=== PATIENT | female | born 1930 | race Caucasian/White ===

== ENCOUNTER 2016-12-23 13:05 | Inpatient (IN) | payer OTHER ==
[2016-12-23 13:12] VITALS: BMI 30.5
--- NOTE | 2016-12-23 13:47 | PDOC ---
History of Present Illness <Linwood Henry - Last Filed: 12/23/16 15:47> - General History Source: Family Exam Limitations: Dementia - History of Present Illness Initial Comments: 12/23/16 14:00 The patient is an 84 year old female, with significant past medical history of advanced dementia, frequent UTIs, HTN, type II diabetes, who presents today complaining of fever, and cough. The patients daughter reports that the cough and fever started last night around 10pm. The patient had 1 episode of vomiting this morning. The patients daughter states that the patient has an abscess that has been oozing dark, foul-smelling pus on the middle of her chest. The patient's daughter also states that the patient urine has a foul odor. Denies hematochezia, Denies chills, abdominal pain. Denies chest pain, SOB. Allergies: none reported Social Hx: Lives at home and has a home health aid. Daughters visit regularly. PCP: Marleny Bermudez NP. ([facility]) <Celestina Willson - Last Filed: 12/23/16 16:43> - General Chief Complaint: Cold Symptoms Stated Complaint: FEVER, COUGH Past History - Past Medical History Cancer: Yes (cervix) Dementia: Yes Diabetes: Yes Disorders: Yes (UTI's) HTN: Yes - Surgical History Cholecystectomy: Yes - Psycho/Social/Smoking Cessation Hx Anxiety: No Suicidal Ideation: No Smoking Status: No Smoking History: Never smoked Number of Cigarettes Smoked Daily: 0 Information on smoking cessation initiated: No Hx Alcohol Use: No Drug/Substance Use Hx: No <Linwood Henry - Last Filed: 12/23/16 15:47> <Celestina Willson - Last Filed: 12/23/16 16:43> - Past Medical History Allergies/Adverse Reactions: Allergies Allergy/AdvReac Type Severity Reaction Status Date / Time No Known Allergies Allergy Verified 12/23/16 13:11 Home Medications: Ambulatory Orders Clonazepam [Klonopin] 1 mg PO BID #14 tablet 04/06/14 Metformin HCl [Glucophage -] 500 mg PO DAILY #14 tablet 04/06/14 Quetiapine Fumarate [Seroquel -] 100 mg PO TID #14 tablet 04/06/14 Sennosides [Senna -] 2 tab PO DAILY #14 tablet 04/06/14 Bisacodyl [Dulcolax] 5 mg PO TID 12/23/16 Nifedipine 30 mg PO DAILY 12/23/16 Review of Systems - Review of Systems Able to Perform ROS?: Yes Comments:: 12/23/16 14:00 CONSTITUTIONAL: Present: fever, Absent: no chills, no fatigue EYES: Absent: visual changes ENT: Absent: ear pain, no sore throat CARDIOVASCULAR: Absent: chest pain, no palpitations RESPIRATORY: Present: cough Absent: no SOB GI: Present: vomiting. Absent: abdominal pain, no nausea, no constipation, no diarrhea GENITOURINARY: Absent: dysuria, no frequency, no hematuria MUSCULOSKELETAL: Absent: back pain, no arthralgia, no myalgia SKIN: Present: rash on chest <Celestina Willson - Last Filed: 12/23/16 16:43> *Physical Exam - Vital Signs Last Vital Signs Temp Pulse Resp BP Pulse Ox 100.9 F H 95 H 18 144/76 97 12/23/16 13:07 12/23/16 13:07 12/23/16 13:07 12/23/16 13:07 12/23/16 13:07 <Linwood Henry - Last Filed: 12/23/16 15:47> - Vital Signs Last Vital Signs Temp Pulse Resp BP Pulse Ox 100.9 F H 95 H 18 144/76 97 12/23/16 13:07 12/23/16 13:07 12/23/16 13:07 12/23/16 13:07 12/23/16 13:07 - Physical Exam Comments: 12/23/16 14:01 GENERAL: Well-appearing, well-nourished. Advanced dementia, unable to communicate. Does not follow commands. HEENT: Normocephalic, atraumatic. PERRL, EOM intact. CARDIOVASCULAR: Normal S1, S2. Regular rate and rhythm. PULMONARY: Clear to auscultation bilaterally. ABDOMEN: Obsese. Soft, non-distended, non-tender. EXTREMITIES: Normal ROM in all four extremities. No gross deformities. SKIN: Superficial rash. No mass, no fluctuance. Warm, dry. NEUROLOGICAL: No focal neurological deficits. <Celestina Willson - Last Filed: 12/23/16 16:43> ED Treatment Course - LABORATORY CBC & Chemistry Diagram: 12/23/16 14:00 12/23/16 14:00 <Linwood Henry - Last Filed: 12/23/16 15:47> - LABORATORY CBC & Chemistry Diagram: 12/23/16 14:00 12/23/16 14:00 - RADIOLOGY Radiograph Interpretation: 12/23/16 15:29 EXAM#: TYPE/EXAM: RESULT: [id number] RAD/CHEST X-RAY PORTABLE* AP portable chest : Pneumonia Since the prior study of 04/04/2014, again noted is the prominent mediastinum with sclerotic knob. There are prominent central markings but no sign of infiltrate or failure. There is a scoliosis with degenerative changes. There is artifact or evidence of prior surgery by the right apex. Correlation recommended. Reported By: Jamal Almeida MD 12/23/16 1524 <Celestina Willson - Last Filed: 12/23/16 16:43> *DC/Admit/Observation/Transfer - Discharge Dispostion Admit: Yes <Linwood Henry - Last Filed: 12/23/16 15:47> - Attestations Scribe Attestion: 12/23/16 14:01 Documentation prepared by ELDER Kurtz, acting as back office medical assistant for Linwood Henry MD. <Celestina Willson - Last Filed: 12/23/16 16:43> Diagnosis at time of Disposition: UTI (urinary tract infection), Pneumonia - Discharge Dispostion Condition at time of disposition: Guarded - Referrals
[2016-12-23] MEDS ORDERED: SODIUM CHLORIDE 1,000 ML IV SCH ×2 (14:00→17:15)
[2016-12-23 14:22] LABS: BASOPHIL 0.2 % (0-2.0); EOSINOPHIL 0.2 % (0-4.5); MCH 29.4 pg (25.7-33.7); MCHC 33.1 g/dl (32.0-36.0); MEAN CELL VOLUME 88.6 fl (80-96); NEUTROPHILS 75.7 % (42.8-82.8); PLATELET COUNT 215 K/MM3 (134-434); RDW 14.5 % (11.6-15.6); WHITE BLOOD COUNT 6.8 K/mm3 (4.0-10.0)
[2016-12-23 14:44] LABS: ALBUMIN 3.7 g/dl (3.4-5.0); BILIRUBIN,TOTAL 0.5 mg/dL (0.2-1.0); CALCIUM 9.3 mg/dL (8.5-10.1); CREATININE 0.9 mg/dL (0.55-1.02)
[2016-12-23 15:01] LABS: URINE APPEARANCE CLOUDY; URINE BILIRUBIN NEGATIVE (NEGATIVE); URINE BLOOD 2+ (NEGATIVE); URINE COLOR DKYELLOW; URINE GLUCOSE (UA) 1+ (NEGATIVE); URINE KETONE TRACE (NEGATIVE); URINE LEUK ESTERASE TRACE (NEGATIVE); URINE NITRITE POSITIVE (NEGATIVE); URINE PROTEIN 2+ (NEGATIVE); URINE UROBILINOGEN 2.0 E.U/dl E.U./dl (0.2-1.0)
[2016-12-23] MEDS ORDERED: MEROPENEM 1,000 MG in DEXTROSE 5%-WATER - 100 ML IVPB ONE (15:04)
[2016-12-23 15:09] LABS: URINE BACTERIA RARE /hpf (NONE SEEN); URINE MUCUS RARE; URINE RBC 64 /hpf (0-3); URINE WBC 551 /hpf (3-5); YEAST MANY
[2016-12-23] MEDS ORDERED: WATER IVPB ONE (15:14)
[2016-12-23] MEDS ORDERED: DEXTROSE 5% IVPB ONE (15:14)
[2016-12-23] MEDS ORDERED: MEROPENEM IVPB ONE (15:14)
--- NOTE | 2016-12-23 17:09 | HP ---
CHIEF COMPLAINT: Cough and fever. PCP: HISTORY OF PRESENT ILLNESS: The patient is an 84 year old female with a significant PMH of dementia, HTN, type II diabetes, history of pyelonephritis who presents today complaining of fever, and cough. The patients daughter states that the cough and fever started last night around 10pm. She is coughing up yellowish sputum. The patient had 1 episode of vomiting this morning, non bloody, non bilious. She states that her mother didn't want to ambulate today and had no appetite. She also states that the patient has an abscess that she noticed week ago. It ruptured dark, brownish, foul-smelling pus in the middle of her chest. The pt has had multiple sebaceous abscesses in the past.The patient's daughter also states that the patient urine has a foul odor. The pt lives alone but has visiting nurse everyday and her daughters also visit her. The history was taken from the pt's daughters. ER course was notable for: (1)Lactic acid (2)BNP, EKG (3)CXR, UA PAST MEDICAL HISTORY: HTN, Dementia, DM type 2, pyelonephritis PAST SURGICAL HISTORY: Cholecystectomy, hysterectomy due to cervical cancer Social History: Smoking:No Alcohol:No Drugs: No Family History: N/A Allergies No Known Allergies Allergy (Verified 12/23/16 13:11) HOME MEDICATIONS: Medication Instructions Recorded Clonazepam [Klonopin] 1 mg PO BID #14 tablet 04/06/14 Metformin HCl [Glucophage -] 500 mg PO DAILY #14 tablet 04/06/14 Quetiapine Fumarate [Seroquel -] 100 mg PO TID #14 tablet 04/06/14 Sennosides [Senna -] 2 tab PO DAILY #14 tablet 04/06/14 Bisacodyl [Dulcolax] 5 mg PO TID 12/23/16 Nifedipine 30 mg PO DAILY 12/23/16 REVIEW OF SYSTEMS: Limited due to pt's dementia CONSTITUTIONAL: fever, chills, generalized weakness, loss of appetite Absent: diaphoresis, malaise, weight change HEENT: Absent: nasal congestion, throat pain, throat swelling, difficulty swallowing, ear pain, eye pain, CARDIOVASCULAR: Absent: chest pain, syncope, palpitations, RESPIRATORY: cough Absent: hemoptysis GASTROINTESTINAL: vomiting Absent: abdominal pain, abdominal distension, nausea, diarrhea, constipation, melena, hematochezia GENITOURINARY: Absent: frequency, urgency, hesitancy, hematuria, flank pain, genital pain MUSCULOSKELETAL: Absent: myalgia, arthralgia, joint swelling, back pain, neck pain SKIN: abscess in middle of the chest, not draining, rash Absent: itching, pallor ENDOCRINE: Absent: unexplained weight gain, unexplained weight loss, NEUROLOGIC: Absent: headache, unsteady gait, seizure, bladder or bowel incontinence PHYSICAL EXAMINATION GENERAL: Awake, demented, not following commands, in no acute distress. HEAD: Normal with no signs of trauma. EYES: Pupils equal, round and reactive to light, sclera anicteric, conjunctiva clear. No lid lag. EARS, NOSE, THROAT: Ears normal, nares patent, moist mucous membranes. NECK: Normal range of motion, supple without lymphadenopathy, JVD, or masses. LUNGS: Breath sounds equal, diminished bilaterally, occasional wheezes, and no crackles. No accessory muscle use. HEART: Regular rate and rhythm, normal S1 and S2 without murmur, rub or gallop. ABDOMEN: Obese, soft, nontender, not distended, normoactive bowel sounds, no guarding, no rebound, no masses. No hepatomegaly or splenomegaly. MUSCULOSKELETAL: No bony deformities or tenderness. CVA tenderness not available to assess. UPPER EXTREMITIES: 2+ pulses, warm, well-perfused. No cyanosis. No clubbing. Cap refill <2 seconds. No peripheral edema. LOWER EXTREMITIES: 2+ pulses, warm, well-perfused. No calf tenderness. No peripheral edema. NEUROLOGICAL: Cranial nerves grossly II-XII intact but pt didn't follow commands, gait not observed, not speaking. PSYCHIATRIC: uncooperative. SKIN: Warm, dry, normal turgor,rash and abscess in mid chest. ASSESSMENT/PLAN: The patient is an 84 year old female with a significant PMH of dementia, HTN, type II diabetes, history of pyelonephritis who presents today complaining of fever, and cough. The patients daughter states that the cough and fever started last night around 10pm. She is coughing up yellowish sputum. The patient had 1 episode of vomiting this morning, non bloody, non bilious. She states that her mother didn't want to ambulate today and had no appetite. She also states that the patient has an abscess that she noticed week ago. It ruptured dark, brownish, foul-smelling pus in the middle of her chest. The pt has had multiple sebaceous abscesses in the past.The patient's daughter also states that the patient urine has a foul odor. The pt is admitted to med surg for SIRS/SEPSIS due to possible PNA/ SIRS/SEPSIS due to possibly CAP/abscess/UTI -Meropenem started in ED -will consult ID -will consider surgery consult tomorrow if abscess not improving -history of skin abscesses in the past -Blood culture and urine culture pending -f/u LA repeat -NS at rate 83 ml/hr -f/u Influenza A and B -f/u sputum culture DM type 2: -will hold Metformin -ISS ACHS -BGM ACHS HTN: -continue Nifedipine 30 mg DAily Dementia; continue home meds Seroquel 100 mg TID, Clonazepam 1 mg PO BID DVT PPX: -heparin 5000 u SQ GI PPX; -not indicated Disposition: Med surg Problem List - Problem (1) Pneumonia Code(s): J18.9 - PNEUMONIA, UNSPECIFIED ORGANISM (2) UTI (urinary tract infection) Code(s): N39.0 - URINARY TRACT INFECTION, SITE NOT SPECIFIED (3) Abscess Code(s): L02.91 - CUTANEOUS ABSCESS, UNSPECIFIED Visit type - Emergency Visit Emergency Visit: Yes ED Registration Date: 12/23/16 Care time: The patient presented to the Emergency Department on the above date and was hospitalized for further evaluation of their emergent condition. - New Patient This patient is new to me today: No - Critical Care Critical Care patient: No
--- NOTE | 2016-12-23 17:38 | PN ---
Teaching Attending Note Name of Resident: Donna Serra ATTENDING PHYSICIAN STATEMENT I saw and evaluated the patient. I reviewed the resident's note and discussed the case with the resident. I agree with the resident's findings and plan as documented. SUBJECTIVE: This is an 84-year-old woman with a history of dementia, HTN, type 2 DM who was brought in to the ER today because of a productive cough and fever since last night. Family notes that her urine has been foul-smelling and she has had a draining lesion on her chest. OBJECTIVE: Vital Signs Period Temp Pulse Resp BP Sys/Mason Pulse Ox Last 24 Hr 100.9 F 95-98 18-18 140-144/76-80 95-97 HEART: S1 S2, RRR LUNGS: Clear ABDOMEN: Soft, non-distended, normal BS EXTREMITIES: No edema ASSESSMENT AND PLAN: This is an 84-year-old woman with a history of dementia, HTN, type 2 DM who was presents to the ER with a productive cough and fever since last night. 1. Sepsis secondary to acute bronchitis, possible early pneumonia, possible UTI , possible skin abscess - Merrem given in ER - IV fluid - Repeat lactic acid - Check influenza A/B - Follow up urine, blood cultures - ID consult 2. HTN - Continue Nifedipine 3. Type 2 diabetes mellitus - Hold metformin secondary to high lactic acid - Fingersticks with Novolog sliding scale 4. Dementia - Continue Seroquel, Klonopin
[2016-12-23] MEDS ORDERED: ACETAMINOPHEN 325 MG TABLET (FP) PO ONE (20:03)
[2016-12-23] MEDS: clonazePAM 0.5 MG TABLET PO SCH (22:00)
[2016-12-23] MEDS: HEPARIN NA (PORCINE) 5,000 UNITS/ML 1ML VIAL SQ SCH (22:40)
[2016-12-23] MEDS: BISACODYL 5 MG TABLET.DR (FP) PO SCH (22:40)
[2016-12-23] MEDS: QUEtiapine FUMARATE 100 MG TABLET (FP) PO SCH (22:41)
[2016-12-23] MEDS: INSULIN SLIDING SCALE (NOVOLOG) 1 VIAL SQ SCH (22:46)
--- NOTE | 2016-12-23 23:18 | EKG ---
Test Reason : Blood Pressure : / mmHG Vent. Rate : 099 BPM Atrial Rate : 099 BPM P-R Int : 160 ms QRS Dur : 090 ms QT Int : 336 ms P-R-T Axes : 051 -47 037 degrees QTc Int : 431 ms NORMAL SINUS RHYTHM LEFT ANTERIOR FASCICULAR BLOCK NONSPECIFIC T WAVE ABNORMALITY ABNORMAL ECG WHEN COMPARED WITH ECG OF 04-APR-2014 18:42, NO SIGNIFICANT CHANGE WAS FOUND Confirmed by ROSARIO GABRIEL MD ([id number]) on 12/23/2016 11:18:41 PM Referred By: Confirmed By:ROSARIO GABRIEL MD
[2016-12-24] MEDS: OSELTAMIVIR PHOSPHATE 30 MG CAPSULE PO SCH ×2 (06:33→22:02)
[2016-12-24] MEDS: HEPARIN NA (PORCINE) 5,000 UNITS/ML 1ML VIAL SQ SCH ×3 (06:33→22:02)
[2016-12-24] MEDS: BISACODYL 5 MG TABLET.DR (FP) PO SCH ×3 (06:33→22:01)
[2016-12-24] MEDS: QUEtiapine FUMARATE 100 MG TABLET (FP) PO SCH ×3 (06:33→22:01)
[2016-12-24] MEDS: INSULIN SLIDING SCALE (NOVOLOG) 1 VIAL SQ SCH ×4 (06:36→22:10)
[2016-12-24] MEDS ORDERED: INSULIN (NOVOLOG) ASPART 100 UNITS/ML 10ML VIAL ONE ×2 (07:11→12:42)
[2016-12-24 07:23] LABS: MCH 29.9 pg (25.7-33.7); MCHC 33.3 g/dl (32.0-36.0); MEAN CELL VOLUME 89.9 fl (80-96); MEAN PLT VOLUME 9.3 fl (7.5-11.1); PLATELET COUNT 167 K/MM3 (134-434); RDW 14.8 % (11.6-15.6)
[2016-12-24 08:24] LABS: CREATININE 0.7 mg/dL (0.55-1.02)
[2016-12-24] MEDS ORDERED: PT OWN MED DRAWER 7, Y5N ONE (10:38)
[2016-12-24] MEDS: SENNOSIDES 8.6MG TABLET (FP) PO SCH (10:40)
[2016-12-24] MEDS: NIFEdipine E.R. 30 MG TABLET (FP) PO SCH (10:40)
[2016-12-24] MEDS: clonazePAM 0.5 MG TABLET PO SCH ×2 (10:40→22:01)
[2016-12-24] MEDS ORDERED: SODIUM CHLORIDE 1,000 ML IV SCH (11:24)
[2016-12-24] MEDS ORDERED: PIPERACILLIN/TAZOB 3.375 GM/50 ML PRE-DOCKED IVPB ONE (11:30)
--- NOTE | 2016-12-24 11:43 | CONSULT ---
Consultation: REQUESTING PROVIDER:Ranjan CONSULT REQUEST: CTSP for evaluation and management of possible ABSSSI of the anterior chest wall; pt. has had this in the past. HISTORY OF PRESENT ILLNESS:Hx. obtained from the chart; RN PHYSICAL EXAMINATION Vital Signs Temperature 100.5 F H 12/24/16 09:00 Pulse Rate 82 12/24/16 09:00 Respiratory Rate 20 12/24/16 09:00 Blood Pressure 136/75 12/24/16 09:00 O2 Sat by Pulse Oximetry (%) 94 L 12/24/16 09:00 GENERAL: Awake, not oriented x 3 PSYCH: Cooperative. Good eye contact. Appropriate mood and affect. SKIN: Warm, dry, normal turgor, ~ 2.5 cm. soft tissue mass of the anterior chest wall c/w a noninfected sebaceous cyst; no erythema; no fluctuance; o/w negative. LABS: Laboratory Results - last 24 hr 12/23/16 12/23/16 12/23/16 17:20 20:40 22:44 WBC RBC Hgb Hct MCV MCHC RDW Plt Count MPV Sodium Potassium Chloride Carbon Dioxide Anion Gap BUN Creatinine POC Glucometer 222 Random Glucose Lactic Acid 1.768 1.416 Calcium 12/24/16 12/24/16 12/24/16 06:00 06:00 06:35 WBC 6.0 RBC 3.67 Hgb 11.0 D Hct 33.0 MCV 89.9 MCHC 33.3 RDW 14.8 Plt Count 167 D MPV 9.3 Sodium 140 Potassium 3.6 Chloride 109 H Carbon Dioxide 21 D Anion Gap 10 BUN 18 Creatinine 0.7 D POC Glucometer 117 Random Glucose 124 H D Lactic Acid Calcium 8.0 L Microbiology 12/23/16 20:30 Influenza Types A,B Antigen (BRUNA) - Final Nasopharyngeal Swab - Final A/P: sebaceous cyst; no indication for I and D at this time; advise observation; prn surgical f/u. Rene Liu MD FACS Problem List - Problems (1) Sebaceous cyst Code(s): L72.3 - SEBACEOUS CYST Visit type - Case Type Case Type: ED Admission - Emergency Emergency Visit: Yes ED Registration Date: 12/23/16 Care time: The patient presented to the Emergency Department on the above date and was hospitalized for further evaluation of their emergent condition. - New patient This patient is new to me today: Yes Date on this admission: 12/24/16 - Critical Care Critical Care patient: No
[2016-12-24] MEDS ORDERED: VANCOMYCIN 1 GRAM (PRE-DOCKED) 250 ML IVPB ONE (11:45)
[2016-12-24] MEDS: ALBUTEROL SO4 2.5/IPRATROPIUM 0.5 INH SOL 3 ML VIAL.NEB. NEB PRN ×2 (12:45→21:46)
--- NOTE | 2016-12-24 15:26 | CONSULT ---
Consult Consult Specialty:: infectious diseases Reason for Consultation:: uti,flu - History of Present Illness Chief Complaint: cough History of Present Illness: 84 year old female with a significant PMH of dementia, HTN, type II diabetes, history of pyelonephritis who presents today complaining of fever, and cough. The patients daughter states that the cough and fever started last night around 10pm. She is coughing up yellowish sputum. The patient had 1 episode of vomiting this morning, non bloody, non bilious. She states that her mother didn' t want to ambulate today and had no appetite. She also states that the patient has an abscess that she noticed week ago. It ruptured dark, brownish, foul- smelling pus in the middle of her chest. The pt has had multiple sebaceous abscesses in the past.The patient's daughter also states that the patient urine has a foul odor. The pt lives alone but has visiting nurse everyday and her daughters also visit her. The history was taken from the pt's daughters. This history taken from the chart as patient unable to give history and her daughter just left the building patient is awake and opens eyes and does answer something patient has got multiple abx in the emergency room - History Source History Provided By: Medical Record Limitations to Obtaining History: Clinical Condition - Past Medical History Cardio/Vascular: Yes: HTN Renal/: Yes: Cancer Endocrine: Yes: Diabetes Mellitus - Alcohol/Substance Use Hx Alcohol Use: No - Smoking History Smoking history: Never smoked Aproximately how many cigarettes per day: 0 Home Medications - Allergies Allergies/Adverse Reactions: Allergies Allergy/AdvReac Type Severity Reaction Status Date / Time No Known Allergies Allergy Verified 12/23/16 13:11 - Home Medications Home Medications: Ambulatory Orders Clonazepam [Klonopin] 1 mg PO BID #14 tablet 04/06/14 Metformin HCl [Glucophage -] 500 mg PO DAILY #14 tablet 04/06/14 Quetiapine Fumarate [Seroquel -] 100 mg PO TID #14 tablet 04/06/14 Sennosides [Senna -] 2 tab PO DAILY #14 tablet 04/06/14 Bisacodyl [Dulcolax] 5 mg PO TID 12/23/16 Nifedipine 30 mg PO DAILY 12/23/16 Review of Systems - Review of Systems Constitutional: reports: Fever, Other Eyes: reports: No Symptoms HENT: reports: No Symptoms Neck: reports: No Symptoms Cardiovascular: reports: No Symptoms Respiratory: reports: Cough, SOB Gastrointestinal: reports: Vomiting Musculoskeletal: reports: Muscle Weakness Neurological: reports: No Symptoms Endocrine: reports: No Symptoms Hematology/Lymphatic: reports: No Symptoms Physical Exam Vital Signs: Vital Signs Temperature 98.6 F 12/24/16 14:08 Pulse Rate 88 12/24/16 14:08 Respiratory Rate 16 12/24/16 14:08 Blood Pressure 138/70 12/24/16 14:08 O2 Sat by Pulse Oximetry (%) 94 L 12/24/16 09:00 Constitutional: Yes: Calm, Mild Distress Eyes: Yes: Conjunctiva Clear HENT: Yes: Atraumatic Neck: Yes: Supple, Trachea Midline Cardiovascular: Yes: Regular Rate and Rhythm Respiratory: Yes: Regular, Poor Air Entry, Rhonchi Gastrointestinal: Yes: Normal Bowel Sounds, Soft Musculoskeletal: Yes: WNL Extremities: Yes: WNL Neurological: Yes: Alert, Other (dementia) Psychiatric: Yes: Alert Labs: CBC, BMP 12/24/16 06:00 12/24/16 06:00 Imaging - Results Chest X-ray: Report Reviewed, Image Reviewed Assessment/Plan 1. Sepsis secondary to acute bronchitis, early pneumonia, UTI, 2. HTN 3. Type 2 diabetes mellitus dehydration Influenza plan continue tamiflu gentle hydration will start on zosyn await for identification of organism in urine rest continue current mgmt -
--- NOTE | 2016-12-24 16:09 | PN ---
Teaching Attending Note Name of Resident: Donna Serra ATTENDING PHYSICIAN STATEMENT I saw and evaluated the patient. I reviewed the resident's note and discussed the case with the resident. I agree with the resident's findings and plan as documented. SUBJECTIVE: OBJECTIVE: Vital Signs Temperature 98.6 F 12/24/16 14:08 Pulse Rate 88 12/24/16 14:08 Respiratory Rate 16 12/24/16 14:08 Blood Pressure 138/70 12/24/16 14:08 O2 Sat by Pulse Oximetry (%) 94 L 12/24/16 10:00 GENERAL: The patient is awake, alert, demented, in no acute distress. HEAD: Normal with no signs of trauma. EYES: PERRL, sclera anicteric, conjunctiva clear. No ptosis. ENT: Ears normal, nares patent, oropharynx clear without exudates, moist mucous membranes. NECK: Trachea midline, full range of motion, supple. LUNGS: Breath sounds equal, diminished bilaterally, occasional wheezes, no crackles, no accessory muscle use. HEART: Regular rate and rhythm, S1, S2 without murmur, rub or gallop. ABDOMEN: Obese, soft, nontender, nondistended, normoactive bowel sounds, no guarding, no rebound, no hepatosplenomegaly, no masses. EXTREMITIES: 2+ pulses, warm, well-perfused, no edema. NEUROLOGICAL: Cranial nerves II through XII grossly intact. Normal speech, gait not observed. PSYCH: Normal mood, normal affect. SKIN: Warm, dry, normal turgor, abscess in mid chest and rash. CBCD WBC 6.0 K/mm3 (4.0-10.0) 12/24/16 06:00 RBC 3.67 M/mm3 (3.60-5.2) 12/24/16 06:00 Hgb 11.0 GM/dL (10.7-15.3) D 12/24/16 06:00 Hct 33.0 % (32.4-45.2) 12/24/16 06:00 MCV 89.9 fl (80-96) 12/24/16 06:00 MCHC 33.3 g/dl (32.0-36.0) 12/24/16 06:00 RDW 14.8 % (11.6-15.6) 12/24/16 06:00 Plt Count 167 K/MM3 (134-434) D 12/24/16 06:00 MPV 9.3 fl (7.5-11.1) 12/24/16 06:00 CMP Sodium 140 mmol/L (136-145) 12/24/16 06:00 Potassium 3.6 mmol/L (3.5-5.1) 12/24/16 06:00 Chloride 109 mmol/L (98-107) H 12/24/16 06:00 Carbon Dioxide 21 mmol/L (21-32) D 12/24/16 06:00 Anion Gap 10 (8-16) 12/24/16 06:00 BUN 18 mg/dL (7-18) 12/24/16 06:00 Creatinine 0.7 mg/dL (0.55-1.02) D 12/24/16 06:00 Creat Clearance w eGFR 59.37 (>60) 12/23/16 14:00 Random Glucose 124 mg/dL (74-106) H D 12/24/16 06:00 Calcium 8.0 mg/dL (8.5-10.1) L 12/24/16 06:00 Total Bilirubin 0.5 mg/dL (0.2-1.0) D 12/23/16 14:00 AST 41 U/L (15-37) H D 12/23/16 14:00 ALT 36 U/L (12-78) 12/23/16 14:00 Alkaline Phosphatase 91 U/L (45-117) 12/23/16 14:00 Total Protein 8.0 g/dl (6.4-8.2) 12/23/16 14:00 Albumin 3.7 g/dl (3.4-5.0) 12/23/16 14:00 Current Medications Generic Name Dose Route Start Last Admin Trade Name Freq PRN Reason Stop Dose Admin Acetaminophen 650 mg 12/24/16 11:23 Tylenol - PO Q6H PRN FEVER OR PAIN Albuterol/Ipratropium 1 amp 12/24/16 11:31 12/24/16 12:45 Duoneb - NEB 1 amp Q6H PRN Administration SHORTNESS OF BREATH Bisacodyl 5 mg 12/23/16 22:00 12/24/16 14:05 Dulcolax - PO 5 mg TID EAMON Administration Clonazepam 1 mg 12/23/16 22:00 12/24/16 10:40 Klonopin - PO 1 mg BID EAMON Administration Heparin Sodium (Porcine) 5,000 unit 12/23/16 22:00 12/24/16 14:05 Heparin - SQ 5,000 unit TID EAMON Administration Sodium Chloride 1,000 mls @ 42 mls/hr 12/24/16 11:24 12/24/16 11:25 Normal Saline - IV Not Given ASDIR EAMON Piperacillin Sod/Tazobactam Sod 50 mls @ 100 mls/hr 12/24/16 18:00 Zosyn 3.375gm Ivpb (Pre-Docked) IVPB Q8H-IV EAMON Insulin Aspart 1 vial 12/23/16 22:00 12/24/16 12:22 Novolog Vial Sliding Scale - SQ 2 unit ACHS EAMON Administration Protocol Nifedipine 30 mg 12/24/16 10:00 12/24/16 10:40 Procardia Xl - PO 30 mg DAILY EAMON Administration Oseltamivir Phosphate 30 mg 12/24/16 06:15 12/24/16 06:33 Tamiflu - PO 30 mg BID EAMON Administration Quetiapine Fumarate 100 mg 12/23/16 22:00 12/24/16 14:05 Seroquel - PO Not Given TID EAMON Senna 2 tab 12/24/16 10:00 12/24/16 10:40 Senna - PO 2 tab DAILY EAMON Administration Medication Instructions Recorded Clonazepam [Klonopin] 1 mg PO BID #14 tablet 04/06/14 Metformin HCl [Glucophage -] 500 mg PO DAILY #14 tablet 04/06/14 Quetiapine Fumarate [Seroquel -] 100 mg PO TID #14 tablet 04/06/14 Sennosides [Senna -] 2 tab PO DAILY #14 tablet 04/06/14 Bisacodyl [Dulcolax] 5 mg PO TID 12/23/16 Nifedipine 30 mg PO DAILY 12/23/16 ASSESSMENT AND PLAN: This is an 84-year-old woman with a history of dementia, HTN, type 2 DM who was presents to the ER with a productive cough and fever since last night. # Acute sepsis due having acute bronchitis with possible early pneumonia/ UTI , possible mid sternal abscess ID on the case , patient is on Zosyn, surgical consult appreciated for possible drainage of the mid sternal abscess # HTN Continue Nifedipine # Type 2 diabetes mellitus : Fingersticks with Novolog sliding scale # Dementia Continue Seroquel
--- NOTE | 2016-12-24 16:36 | PN ---
Physical Exam: SUBJECTIVE: Patient seen and examined. She is demented. No ROS. OBJECTIVE: Vital Signs Period Temp Pulse Resp BP Sys/Mason Pulse Ox Last 24 Hr 98.6 F-101.6 F 82-98 16-20 124-149/60-80 94-95 GENERAL: The patient is awake, alert, demented, in no acute distress. HEAD: Normal with no signs of trauma. EYES: PERRL, sclera anicteric, conjunctiva clear. No ptosis. ENT: Ears normal, nares patent, oropharynx clear without exudates, moist mucous membranes. NECK: Trachea midline, full range of motion, supple. LUNGS: Breath sounds equal, diminished bilaterally, occasional wheezes, no crackles, no accessory muscle use. HEART: Regular rate and rhythm, S1, S2 without murmur, rub or gallop. ABDOMEN: Obese, soft, nontender, nondistended, normoactive bowel sounds, no guarding, no rebound, no hepatosplenomegaly, no masses. EXTREMITIES: 2+ pulses, warm, well-perfused, no edema. NEUROLOGICAL: Cranial nerves II through XII grossly intact. Normal speech, gait not observed. PSYCH: Normal mood, normal affect. SKIN: Warm, dry, normal turgor, abscess in mid chest and rash. Laboratory Results - last 24 hr 12/23/16 12/23/16 12/23/16 17:20 20:40 22:44 WBC RBC Hgb Hct MCV MCHC RDW Plt Count MPV Sodium Potassium Chloride Carbon Dioxide Anion Gap BUN Creatinine POC Glucometer 222 Random Glucose Lactic Acid 1.768 1.416 Calcium 12/24/16 12/24/16 12/24/16 06:00 06:00 06:35 WBC 6.0 RBC 3.67 Hgb 11.0 D Hct 33.0 MCV 89.9 MCHC 33.3 RDW 14.8 Plt Count 167 D MPV 9.3 Sodium 140 Potassium 3.6 Chloride 109 H Carbon Dioxide 21 D Anion Gap 10 BUN 18 Creatinine 0.7 D POC Glucometer 117 Random Glucose 124 H D Lactic Acid Calcium 8.0 L 12/24/16 12:21 WBC RBC Hgb Hct MCV MCHC RDW Plt Count MPV Sodium Potassium Chloride Carbon Dioxide Anion Gap BUN Creatinine POC Glucometer 180 Random Glucose Lactic Acid Calcium Active Medications Generic Name Dose Route Start Last Admin Trade Name Freq PRN Reason Stop Dose Admin Acetaminophen 650 mg 12/24/16 11:23 Tylenol - PO Q6H PRN FEVER OR PAIN Albuterol/Ipratropium 1 amp 12/24/16 11:31 12/24/16 12:45 Duoneb - NEB 1 amp Q6H PRN Administration SHORTNESS OF BREATH Bisacodyl 5 mg 12/23/16 22:00 12/24/16 14:05 Dulcolax - PO 5 mg TID EMAON Administration Clonazepam 1 mg 12/23/16 22:00 12/24/16 10:40 Klonopin - PO 1 mg BID EAMON Administration Heparin Sodium (Porcine) 5,000 unit 12/23/16 22:00 12/24/16 14:05 Heparin - SQ 5,000 unit TID EAMON Administration Sodium Chloride 1,000 mls @ 42 mls/hr 12/24/16 11:24 12/24/16 11:25 Normal Saline - IV Not Given ASDIR EAMON Piperacillin Sod/Tazobactam Sod 50 mls @ 100 mls/hr 12/24/16 18:00 Zosyn 3.375gm Ivpb (Pre-Docked) IVPB Q8H-IV EAMON Insulin Aspart 1 vial 12/23/16 22:00 12/24/16 12:22 Novolog Vial Sliding Scale - SQ 2 unit ACHS EAMON Administration Protocol Nifedipine 30 mg 12/24/16 10:00 12/24/16 10:40 Procardia Xl - PO 30 mg DAILY EAMON Administration Oseltamivir Phosphate 30 mg 12/24/16 06:15 12/24/16 06:33 Tamiflu - PO 30 mg BID EAMON Administration Quetiapine Fumarate 100 mg 12/23/16 22:00 12/24/16 14:05 Seroquel - PO Not Given TID EAMON Senna 2 tab 12/24/16 10:00 12/24/16 10:40 Senna - PO 2 tab DAILY EAMON Administration CXR: no acute pathology. ASSESSMENT/PLAN: The patient is an 84 year old female with a significant PMH of dementia, HTN, type II diabetes, history of pyelonephritis who presents today complaining of fever, and cough. The patients daughter states that the cough and fever started last night around 10pm. She is coughing up yellowish sputum. The patient had 1 episode of vomiting this morning, non bloody, non bilious. She states that her mother didn't want to ambulate today and had no appetite. She also states that the patient has an abscess that she noticed week ago. It ruptured dark, brownish, foul-smelling pus in the middle of her chest. The pt has had multiple sebaceous abscesses in the past.The patient's daughter also states that the patient urine has a foul odor. The pt is admitted to med surg for SIRS/SEPSIS due to possible PNA/abscess. SIRS/SEPSIS due to possibly CAP/abscess/UTI -Meropenem started in ED, -will consult ID -started Zosyn and Tamiflu 30 mg -Tylenol for fever -surgery consulted -history of skin abscesses in the past -Blood culture and urine culture pending -f/u LA repeat, normalized -NS at rate 83 ml/hr, decreased to 42ml/hr -positive for Influenza A -f/u sputum culture DM type 2: -will hold Metformin -ISS ACHS -BGM ACHS HTN: -continue Nifedipine 30 mg DAily Dementia; continue home meds Seroquel 100 mg TID, Clonazepam 1 mg PO BID DVT PPX: -heparin 5000 u SQ GI PPX; -not indicated Disposition: Med surg Problem List - Problems (1) Pneumonia Code(s): J18.9 - PNEUMONIA, UNSPECIFIED ORGANISM (2) UTI (urinary tract infection) Code(s): N39.0 - URINARY TRACT INFECTION, SITE NOT SPECIFIED (3) Abscess Code(s): L02.91 - CUTANEOUS ABSCESS, UNSPECIFIED Visit type - Emergency Visit Emergency Visit: Yes ED Registration Date: 12/23/16 Care time: The patient presented to the Emergency Department on the above date and was hospitalized for further evaluation of their emergent condition. - New Patient This patient is new to me today: No - Critical Care Critical Care patient: No - Discharge Referral Referred to [facility] Med P.C.: No
[2016-12-24] MEDS: PIPERACILLIN/TAZOB 3.375 GM 50 ML IVPB SCH (19:00)
[2016-12-25] MEDS: PIPERACILLIN/TAZOB 3.375 GM 50 ML IVPB SCH ×3 (01:28→17:44)
[2016-12-25] MEDS: QUEtiapine FUMARATE 100 MG TABLET (FP) PO SCH ×3 (06:20→21:52)
[2016-12-25] MEDS: HEPARIN NA (PORCINE) 5,000 UNITS/ML 1ML VIAL SQ SCH ×3 (06:21→21:52)
[2016-12-25] MEDS: INSULIN SLIDING SCALE (NOVOLOG) 1 VIAL SQ SCH ×4 (06:22→21:49)
[2016-12-25] MEDS: BISACODYL 5 MG TABLET.DR (FP) PO SCH ×3 (07:38→21:51)
[2016-12-25] MEDS: clonazePAM 0.5 MG TABLET PO SCH ×2 (10:48→21:52)
[2016-12-25] MEDS ORDERED: PT OWN MED DRAWER 7, Y5N ONE ×2 (10:51→18:35)
[2016-12-25] MEDS: NIFEdipine E.R. 30 MG TABLET (FP) PO SCH (10:53)
[2016-12-25] MEDS: ACETAMINOPHEN 325 MG TABLET (FP) PO PRN (10:53)
[2016-12-25] MEDS: OSELTAMIVIR PHOSPHATE 30 MG CAPSULE PO SCH ×2 (10:53→21:52)
[2016-12-25] MEDS: SENNOSIDES 8.6MG TABLET (FP) PO SCH (10:53)
--- NOTE | 2016-12-25 12:45 | PN ---
Physical Exam: SUBJECTIVE: Patient seen and examined. She is demented. No overnight events noted by the nurse. OBJECTIVE: Vital Signs Period Temp Pulse Resp BP Sys/Mason Pulse Ox Last 24 Hr 98 F-99.6 F 77-88 16-20 138-139/70-86 94 GENERAL: The patient is awake, demented, in no acute distress. HEAD: Normal with no signs of trauma. EYES: PERRL, extraocular movements intact, sclera anicteric, conjunctiva clear. No ptosis. ENT: Ears normal, nares patent, oropharynx clear without exudates, moist mucous membranes. NECK: Trachea midline, full range of motion, supple. LUNGS: Breath sounds equal, diminished bilaterally, no wheezes, no crackles, no accessory muscle use. HEART: Regular rate and rhythm, S1, S2 without murmur, rub or gallop. ABDOMEN: Obese, soft, nontender, nondistended, normoactive bowel sounds, no guarding, no rebound, no hepatosplenomegaly, no masses. EXTREMITIES: 2+ pulses, warm, well-perfused, no edema. NEUROLOGICAL: Cranial nerves II through XII grossly intact. Normal speech, gait not observed. PSYCH: Normal mood, normal affect. SKIN: Warm, dry, normal turgor, abscess and rash in mid chest present. Laboratory Results - last 24 hr 12/24/16 12/24/16 12/24/16 12:21 17:38 22:07 POC Glucometer 180 125 157 Lactic Acid 12/25/16 12/25/16 12/25/16 05:47 06:00 11:49 POC Glucometer 120 174 Lactic Acid 0.851 Active Medications Generic Name Dose Route Start Last Admin Trade Name Freq PRN Reason Stop Dose Admin Acetaminophen 650 mg 12/24/16 11:23 12/25/16 10:53 Tylenol - PO 650 mg Q6H PRN Administration FEVER OR PAIN Albuterol/Ipratropium 1 amp 12/24/16 11:31 12/24/16 21:46 Duoneb - NEB 1 amp Q6H PRN Administration SHORTNESS OF BREATH Bisacodyl 5 mg 12/23/16 22:00 12/25/16 07:38 Dulcolax - PO Not Given TID EAMON Clonazepam 1 mg 12/23/16 22:00 12/25/16 10:48 Klonopin - PO Not Given BID EAMON Diltiazem HCl 30 mg 12/25/16 12:45 Cardizem - PO Q6H EAMON Heparin Sodium (Porcine) 5,000 unit 12/23/16 22:00 12/25/16 06:21 Heparin - SQ 5,000 unit TID EAMON Administration Piperacillin Sod/Tazobactam Sod 50 mls @ 100 mls/hr 12/24/16 18:00 12/25/16 10: 53 Zosyn 3.375gm Ivpb (Pre-Docked) IVPB 100 mls/hr Q8H-IV EAMON Administration Insulin Aspart 1 vial 12/23/16 22:00 12/25/16 11:50 Novolog Vial Sliding Scale - SQ 2 units ACHS EAMON Administration Protocol Oseltamivir Phosphate 30 mg 12/24/16 06:15 12/25/16 10:53 Tamiflu - PO 30 mg BID EAMON Administration Quetiapine Fumarate 100 mg 12/23/16 22:00 12/25/16 06:20 Seroquel - PO Not Given TID EAMON Senna 2 tab 12/24/16 10:00 12/25/16 10:53 Senna - PO 2 tab DAILY EAMON Administration CXR: no acute pathology. ASSESSMENT/PLAN: The patient is an 84 year old female with a significant PMH of dementia, HTN, type II diabetes, history of pyelonephritis who presents today complaining of fever, and cough. The patients daughter states that the cough and fever started last night around 10pm. She is coughing up yellowish sputum. The patient had 1 episode of vomiting this morning, non bloody, non bilious. She states that her mother didn't want to ambulate today and had no appetite. She also states that the patient has an abscess that she noticed week ago. It ruptured dark, brownish, foul-smelling pus in the middle of her chest. The pt has had multiple sebaceous abscesses in the past.The patient's daughter also states that the patient urine has a foul odor. The pt is admitted to med surg for SIRS/SEPSIS due to possible PNA/abscess. SIRS/SEPSIS due to possibly CAP/abscess/UTI -Meropenem started in ED, -consulted ID -started Zosyn and Tamiflu 30 mg -Tylenol for fever -history of skin abscesses in the past, surgery not evaluated pt yet -Blood culture and urine culture -f/u LA repeat, normalized -NS at rate 83 ml/hr, decreased to 42ml/hr, stopped today -positive for Influenza A -sputum culture -she spit up her Nifedipine, we ordered Speech and Swallow evaluation, changed diet for puree and ordered Cardizem 30 mg Q6H which can be smashed DM type 2: -hold Metformin -ISS ACHS -BGM ACHS HTN: -continue Cardizem 30 mg Q6H Dementia; continue home meds Seroquel 100 mg TID, Clonazepam 1 mg PO BID DVT PPX: -heparin 5000 u SQ GI PPX; -not indicated Disposition: Med surg Problem List - Problems (1) Pneumonia Code(s): J18.9 - PNEUMONIA, UNSPECIFIED ORGANISM (2) UTI (urinary tract infection) Code(s): N39.0 - URINARY TRACT INFECTION, SITE NOT SPECIFIED (3) Abscess Code(s): L02.91 - CUTANEOUS ABSCESS, UNSPECIFIED Visit type - Emergency Visit Emergency Visit: Yes ED Registration Date: 12/23/16 Care time: The patient presented to the Emergency Department on the above date and was hospitalized for further evaluation of their emergent condition. - New Patient This patient is new to me today: No - Critical Care Critical Care patient: No - Discharge Referral Referred to [facility] Med P.C.: No
--- NOTE | 2016-12-25 13:03 | PN ---
Progress Note, Physician History of Present Illness: patient feeling better still weak sitting in chair daughter in room spoke in detail with the daughter - Current Medication List Current Medications: Active Medications Acetaminophen (Tylenol -) 650 mg PO Q6H PRN PRN Reason: FEVER OR PAIN Last Admin: 12/25/16 10:53 Dose: 650 mg Albuterol/Ipratropium (Duoneb -) 1 amp NEB Q6H PRN PRN Reason: SHORTNESS OF BREATH Last Admin: 12/24/16 21:46 Dose: 1 amp Bisacodyl (Dulcolax -) 5 mg PO TID [facility] Last Admin: 12/25/16 07:38 Dose: Not Given Clonazepam (Klonopin -) 1 mg PO BID [facility] Last Admin: 12/25/16 10:48 Dose: Not Given Diltiazem HCl (Cardizem -) 30 mg PO Q6HPO [facility] Heparin Sodium (Porcine) (Heparin -) 5,000 unit SQ TID [facility] Last Admin: 12/25/16 06:21 Dose: 5,000 unit Piperacillin Sod/Tazobactam Sod (Zosyn 3.375gm Ivpb (Pre-Docked)) 50 mls @ 100 mls/hr IVPB Q8H-IV [facility] Last Admin: 12/25/16 10:53 Dose: 100 mls/hr Insulin Aspart (Novolog Vial Sliding Scale -) 1 vial SQ ACHS [facility] PRN Reason: Protocol Last Admin: 12/25/16 11:50 Dose: 2 units Oseltamivir Phosphate (Tamiflu -) 30 mg PO BID [facility] Last Admin: 12/25/16 10:53 Dose: 30 mg Quetiapine Fumarate (Seroquel -) 100 mg PO TID [facility] Last Admin: 12/25/16 06:20 Dose: Not Given Senna (Senna -) 2 tab PO DAILY [facility] Last Admin: 12/25/16 10:53 Dose: 2 tab - Objective Vital Signs: Vital Signs Temperature 99.6 F 12/25/16 07:04 Pulse Rate 87 12/25/16 07:04 Respiratory Rate 20 12/25/16 07:04 Blood Pressure 139/86 12/25/16 07:04 O2 Sat by Pulse Oximetry (%) 94 L 12/24/16 21:00 Constitutional: Yes: No Distress, Calm Cardiovascular: Yes: Regular Rate and Rhythm Respiratory: Yes: Regular, Poor Air Entry Gastrointestinal: Yes: Normal Bowel Sounds, Soft Extremities: Yes: WNL Neurological: Yes: Alert, Other Psychiatric: Yes: Alert, Other Labs: CBC, BMP 12/24/16 06:00 12/24/16 06:00 Assessment/Plan 1. Sepsis secondary to acute bronchitis, early pneumonia, UTI, 2. HTN 3. Type 2 diabetes mellitus dehydration Influenza plan continue tamiflu continue abx await for identification of organism in urine rest continue current mgmt -
--- NOTE | 2016-12-25 13:12 | CONSULT ---
Admitting History and Physical - Primary Care Physician PCP: Donna Serra - Admission History of Present Illness: Per EMR: "The patient is an 84 year old female with a significant PMH of dementia, HTN, type II diabetes, history of pyelonephritis who presents today complaining of fever, and cough. The patients daughter states that the cough and fever started last night around 10pm. She is coughing up yellowish sputum. The patient had 1 episode of vomiting this morning, non bloody, non bilious. She states that her mother didn't want to ambulate today and had no appetite. She also states that the patient has an abscess that she noticed week ago. It ruptured dark, brownish, foul-smelling pus in the middle of her chest. The pt has had multiple sebaceous abscesses in the past.The patient's daughter also states that the patient urine has a foul odor. The pt lives alone but has visiting nurse everyday and her daughters also visit her. The history was taken from the pt's daughters. ER course was notable for: (1)Lactic acid (2)BNP, EKG (3)CXR, UA PAST MEDICAL HISTORY: HTN, Dementia, DM type 2, pyelonephritis" (+) Influenza Selected Entries 12/24/16 12/24/16 12/25/16 14:08 18:30 11:09 Breakfast 50% 75% Diet Tolerated Well Lunch 0 Supper 50% Laboratory Tests 12/24/16 06:00 WBC 6.0 Placed on pureed diet. Crackles noted today. r/o aspiration. 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 Cardiovascular: Yes: HTN Renal/: Yes: Cancer Endocrine: Yes: Diabetes Mellitus - Smoking History Smoking history: Never smoked Aproximately how many cigarettes per day: 0 - Alcohol/Substance Use Hx Alcohol Use: No History - Admission Reason For Visit: UTI PNEUMONIA - Diagnostics X-ray: Report Reviewed - General Mental Status: Awake and Alert, Forgetful, Vague, Confused Attention: Intact Ability to Follow Directions: Fair Head/Neck Control: WFL - Hearing Hearing: Impaired, Both Hearing Aide: No With Patient: No Speech Evaluation - Communication Primary Language: UPPER SORBIAN Communication: Yes: Language Barrier Oral Expression Ability: Yes: Mild Impairment, Moderate Impairment - Speech Production Able to Make Needs Known: Yes: Mildly Impaired, Moderately Impaired Intelligibility: Yes: WNL - Speech Characteristics Voice Loudness: Normal Voice Pitch: Yes: Normal Voice Phonatory-based Quality: Yes: Harsh (strain strangled voice) Speech Pattern: Normal Nasal Resonance: Normal Articulation: Yes: Precise - Language/Auditory Comprehension Follows: Yes: 1 Stage Simple Commands - Language/Verbal Expression Aphasia: Yes: Paraphrasic Errors - 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 Memory: Yes: Severely Impaired Short Term Memory: Yes: Severely Impaired - Swallow Evaluation/Bedside Assessment Current Nutritional Intake: Dysphagia Pureed, Thin Liquids Oral Secretions: Yes: WFL Dentition: Yes: Missing Teeth (has dentures at at home) Facial Symmetry at Rest: Symmetrical Facial Symmetry on Retraction: Symmetrical Facial Movement: Controlled Against Resistance Opening: Normal Against Resistance Closing: Normal Pucker Lips: Normal Smile: Normal Lingual Movement: Symmetric Velopharyngeal Movement: Normal Laryngeal Elevation: WFL Laryngeal Movement: Able to Palpate Labial Seal: WFL Chewing: WFL (soft) Oral Prep Time: WFL A-P Transit: WFL Pocketing: None Timing of Swallow: Delayed Coughing/Throat Clear: No Change in Voice: No Recommendations - Speech Evaluation, Impression/Plan Impression: Tangential, fluent speech. Stain strangled vocal quality. No cough with thin liquid from a cup. Able to masticate softened ximena cracker.Dentures at home. Spits out capsule. - Dysphagia Impressions/Plan Dysphagia Impressions: Ongoing Evaluation *Silent aspiration: cannot be R/O at bedside Recommendations: Other (family to bring dentures.) - Recommendations Diet Consistency: 1 - 2 Soft Items, Other (regular chopped with soft, easy to chew items) Medication Administration: Crushed with applesauce Liquids: Thin Liquids
[2016-12-25] MEDS: dilTIAZem HCL 30 MG TABLET (FP) PO SCH ×2 (15:22→17:44)
--- NOTE | 2016-12-25 18:14 | PN ---
Teaching Attending Note Name of Resident: Donna Serra ATTENDING PHYSICIAN STATEMENT I saw and evaluated the patient. I reviewed the resident's note and discussed the case with the resident. I agree with the resident's findings and plan as documented. SUBJECTIVE: Patient is comfortable with no acute distress, no shortness of breath OBJECTIVE: Vital Signs Temperature 97.7 F 12/25/16 16:15 Pulse Rate 82 12/25/16 16:15 Respiratory Rate 18 12/25/16 16:15 Blood Pressure 127/70 12/25/16 16:15 O2 Sat by Pulse Oximetry (%) 95 12/25/16 09:00 GENERAL: The patient is awake, alert, demented, in no acute distress. HEAD: Normal with no signs of trauma. EYES: PERRL, sclera anicteric, conjunctiva clear. No ptosis. ENT: Ears normal, nares patent, oropharynx clear without exudates, moist mucous membranes. NECK: Trachea midline, full range of motion, supple. LUNGS: Breath sounds equal, diminished bilaterally, occasional wheezes, no crackles, no accessory muscle use. HEART: Regular rate and rhythm, S1, S2 without murmur, rub or gallop. ABDOMEN: Obese, soft, nontender, nondistended, normoactive bowel sounds, no guarding, no rebound, no hepatosplenomegaly, no masses. EXTREMITIES: 2+ pulses, warm, well-perfused, no edema. NEUROLOGICAL: Cranial nerves II through XII grossly intact. Normal speech, gait not observed. PSYCH: Normal mood, normal affect. SKIN: Warm, dry, normal turgor, abscess in mid chest and rash. Mid sternal mass:2.5 cm. soft tissue mass of the anterior chest wall c/w a noninfected sebaceous cyst; no erythema; no fluctuance; CBCD WBC 6.0 K/mm3 (4.0-10.0) 12/24/16 06:00 RBC 3.67 M/mm3 (3.60-5.2) 12/24/16 06:00 Hgb 11.0 GM/dL (10.7-15.3) D 12/24/16 06:00 Hct 33.0 % (32.4-45.2) 12/24/16 06:00 MCV 89.9 fl (80-96) 12/24/16 06:00 MCHC 33.3 g/dl (32.0-36.0) 12/24/16 06:00 RDW 14.8 % (11.6-15.6) 12/24/16 06:00 Plt Count 167 K/MM3 (134-434) D 12/24/16 06:00 MPV 9.3 fl (7.5-11.1) 12/24/16 06:00 CMP Sodium 140 mmol/L (136-145) 12/24/16 06:00 Potassium 3.6 mmol/L (3.5-5.1) 12/24/16 06:00 Chloride 109 mmol/L (98-107) H 12/24/16 06:00 Carbon Dioxide 21 mmol/L (21-32) D 12/24/16 06:00 Anion Gap 10 (8-16) 12/24/16 06:00 BUN 18 mg/dL (7-18) 12/24/16 06:00 Creatinine 0.7 mg/dL (0.55-1.02) D 12/24/16 06:00 Creat Clearance w eGFR 59.37 (>60) 12/23/16 14:00 Random Glucose 124 mg/dL (74-106) H D 12/24/16 06:00 Calcium 8.0 mg/dL (8.5-10.1) L 12/24/16 06:00 Total Bilirubin 0.5 mg/dL (0.2-1.0) D 12/23/16 14:00 AST 41 U/L (15-37) H D 12/23/16 14:00 ALT 36 U/L (12-78) 12/23/16 14:00 Alkaline Phosphatase 91 U/L (45-117) 12/23/16 14:00 Total Protein 8.0 g/dl (6.4-8.2) 12/23/16 14:00 Albumin 3.7 g/dl (3.4-5.0) 12/23/16 14:00 Current Medications Generic Name Dose Route Start Last Admin Trade Name Freq PRN Reason Stop Dose Admin Acetaminophen 650 mg 12/24/16 11:23 12/25/16 10:53 Tylenol - PO 650 mg Q6H PRN Administration FEVER OR PAIN Albuterol/Ipratropium 1 amp 12/24/16 11:31 12/24/16 21:46 Duoneb - NEB 1 amp Q6H PRN Administration SHORTNESS OF BREATH Bisacodyl 5 mg 12/23/16 22:00 12/25/16 14:06 Dulcolax - PO 5 mg TID EAMON Administration Clonazepam 1 mg 12/23/16 22:00 12/25/16 10:48 Klonopin - PO Not Given BID EAMON Diltiazem HCl 30 mg 12/25/16 12:45 12/25/16 17:44 Cardizem - PO 30 mg Q6HPO EAMON Administration Heparin Sodium (Porcine) 5,000 unit 12/23/16 22:00 12/25/16 14:06 Heparin - SQ 5,000 unit TID EAMON Administration Piperacillin Sod/Tazobactam Sod 50 mls @ 100 mls/hr 12/24/16 18:00 12/25/16 17: 44 Zosyn 3.375gm Ivpb (Pre-Docked) IVPB 100 mls/hr Q8H-IV EAMON Administration Insulin Aspart 1 vial 12/23/16 22:00 12/25/16 17:47 Novolog Vial Sliding Scale - SQ Not Given [facility] Protocol Oseltamivir Phosphate 30 mg 12/24/16 06:15 12/25/16 10:53 Tamiflu - PO 30 mg BID EAMON Administration Quetiapine Fumarate 100 mg 12/23/16 22:00 12/25/16 14:06 Seroquel - PO 100 mg TID EAMON Administration Senna 2 tab 12/24/16 10:00 12/25/16 10:53 Senna - PO 2 tab DAILY EAMON Administration Medication Instructions Recorded Clonazepam [Klonopin] 1 mg PO BID #14 tablet 04/06/14 Metformin HCl [Glucophage -] 500 mg PO DAILY #14 tablet 04/06/14 Quetiapine Fumarate [Seroquel -] 100 mg PO TID #14 tablet 04/06/14 Sennosides [Senna -] 2 tab PO DAILY #14 tablet 04/06/14 Bisacodyl [Dulcolax] 5 mg PO TID 12/23/16 Nifedipine 30 mg PO DAILY 12/23/16 ASSESSMENT AND PLAN: This is an 84-year-old woman with a history of dementia, HTN, type 2 DM who was presents to the ER with a productive cough and fever since last night. # s/p sepsis due having acute bronchitis with possible early pneumonia/ UTI, possible mid sternal abscess ID on the case , patient is on Zosyn, surgical consult appreciated for possible drainage of the mid sternal abscess as per surgeon it is a sebaceous cyst;with no indication for I and D at this time; ,observe with prn surgical f/u. monitor the cyst ,slightly erythematous around the area. # HTN Continue Nifedipine # Type 2 diabetes mellitus : Fingersticks with Novolog sliding scale # Dementia Continue Seroquel
[2016-12-25] MEDS: ALBUTEROL SO4 2.5/IPRATROPIUM 0.5 INH SOL 3 ML VIAL.NEB. NEB PRN (19:11)
[2016-12-25] MEDS ORDERED: INSULIN (NOVOLOG) ASPART 100 UNITS/ML 10ML VIAL ONE (20:26)
[2016-12-26] MEDS: PIPERACILLIN/TAZOB 3.375 GM 50 ML IVPB SCH ×2 (01:52→10:34)
[2016-12-26] MEDS: INSULIN SLIDING SCALE (NOVOLOG) 1 VIAL SQ SCH ×4 (06:14→22:12)
[2016-12-26] MEDS: HEPARIN NA (PORCINE) 5,000 UNITS/ML 1ML VIAL SQ SCH ×3 (06:15→22:16)
[2016-12-26] MEDS: QUEtiapine FUMARATE 100 MG TABLET (FP) PO SCH ×2 (06:15→13:37)
[2016-12-26] MEDS: BISACODYL 5 MG TABLET.DR (FP) PO SCH ×3 (06:16→22:16)
[2016-12-26] MEDS: dilTIAZem HCL 30 MG TABLET (FP) PO SCH ×4 (06:16→18:28)
[2016-12-26] MEDS ORDERED: PT OWN MED DRAWER 7, Y5N ONE ×2 (10:08→10:52)
[2016-12-26] MEDS: OSELTAMIVIR PHOSPHATE 30 MG CAPSULE PO SCH ×2 (10:35→22:17)
[2016-12-26] MEDS: SENNOSIDES 8.6MG TABLET (FP) PO SCH (10:35)
[2016-12-26] MEDS: clonazePAM 0.5 MG TABLET PO SCH (10:35)
[2016-12-26] MEDS: ALBUTEROL SO4 2.5/IPRATROPIUM 0.5 INH SOL 3 ML VIAL.NEB. NEB PRN ×3 (11:34→23:51)
[2016-12-26] MEDS: ERTAPENEM SODIUM 1 GM in SODIUM CHLORIDE 50 ML IVPB SCH (12:47)
--- NOTE | 2016-12-26 15:20 | PN ---
Progress Note, Physician History of Present Illness: patient stable daughter in room says she did feel patient had wheezing - Current Medication List Current Medications: Active Medications Acetaminophen (Tylenol -) 650 mg PO Q6H PRN PRN Reason: FEVER OR PAIN Last Admin: 12/25/16 10:53 Dose: 650 mg Albuterol/Ipratropium (Duoneb -) 1 amp NEB Q6H PRN PRN Reason: SHORTNESS OF BREATH Last Admin: 12/26/16 11:34 Dose: 1 amp Bisacodyl (Dulcolax -) 5 mg PO TID [facility] Last Admin: 12/26/16 13:58 Dose: 5 mg Clonazepam (Klonopin -) 1 mg PO BID [facility] Last Admin: 12/26/16 10:35 Dose: 1 mg Diltiazem HCl (Cardizem -) 30 mg PO Q6HPO [facility] Last Admin: 12/26/16 12:47 Dose: 30 mg Heparin Sodium (Porcine) (Heparin -) 5,000 unit SQ TID [facility] Last Admin: 12/26/16 13:58 Dose: 5,000 unit Ertapenem 1 gm/ Sodium (Chloride) 50 mls @ 50 mls/hr IVPB DAILY [facility] Last Admin: 12/26/16 12:47 Dose: 50 mls/hr Insulin Aspart (Novolog Vial Sliding Scale -) 1 vial SQ ACHS [facility] PRN Reason: Protocol Last Admin: 12/26/16 12:35 Dose: 2 units Oseltamivir Phosphate (Tamiflu -) 30 mg PO BID [facility] Last Admin: 12/26/16 10:35 Dose: 30 mg Quetiapine Fumarate (Seroquel -) 100 mg PO TID [facility] Last Admin: 12/26/16 13:37 Dose: Not Given Senna (Senna -) 2 tab PO DAILY [facility] Last Admin: 12/26/16 10:35 Dose: 2 tab - Objective Vital Signs: Vital Signs Temperature 97.9 F 12/26/16 15:15 Pulse Rate 78 12/26/16 15:15 Respiratory Rate 16 12/26/16 15:15 Blood Pressure 153/77 12/26/16 15:15 O2 Sat by Pulse Oximetry (%) 98 12/26/16 11:33 Constitutional: Yes: No Distress, Calm Neck: Yes: Supple Cardiovascular: Yes: Regular Rate and Rhythm Respiratory: Yes: Regular, Poor Air Entry, Wheezes Gastrointestinal: Yes: Normal Bowel Sounds, Soft Musculoskeletal: Yes: WNL Extremities: Yes: WNL Neurological: Yes: Alert, Other Psychiatric: Yes: Alert Labs: CBC, BMP 12/24/16 06:00 12/24/16 06:00 Assessment/Plan 1. Sepsis secondary to acute bronchitis, early pneumonia, UTI, 2. HTN 3. Type 2 diabetes mellitus dehydration Influenza ESBL UTI plan continue tamiflu organism noted patient changed to ertapenam agree with that
[2016-12-26] MEDS: ACETAMINOPHEN 325 MG TABLET (FP) PO PRN (15:21)
--- NOTE | 2016-12-26 16:26 | PN ---
Progress Note, [employer] - Note Progress Note: Selected Entries 12/25/16 12/25/16 12/25/16 07:04 11:09 14:34 Breakfast 75% Lunch 75% Supper Temperature 99.6 F 98.9 F 12/25/16 12/25/16 12/26/16 16:15 18:34 05:53 Breakfast Lunch Supper 50% Temperature 97.7 F 97.6 F 12/26/16 12/26/16 12/26/16 08:58 11:51 15:15 Breakfast 50% Lunch 75% Supper Temperature 98.4 F 97.9 F Laboratory Tests 12/24/16 06:00 WBC 6.0
[2016-12-26] MEDS ORDERED: QUEtiapine FUMARATE 25 MG TABLET (FP) PO PRN (19:35)
--- NOTE | 2016-12-26 19:50 | PN ---
Teaching Attending Note Name of Resident: Donna Serra ATTENDING PHYSICIAN STATEMENT I saw and evaluated the patient. I reviewed the resident's note and discussed the case with the resident. I agree with the resident's findings and plan as documented. SUBJECTIVE: unable toobtain hx . as lethargic was agitated this am , received seroquel and klonopin so became lethargic OBJECTIVE: NAD , lethargis responds to painful stimuli , does not answer questions CV: RRR lungs : b/l rales ext: no edema ASSESSMENT AND PLAN: 86 y/o lady with h/o DM II, dementia, UTIS who presneted with lethargy and was found to have ESBL UTI 1- complicated UTI : cx with ESBL. - changed zosyn to ertapenem . need 7 days of treatment - will d/w family options for PICC 2- AMS :acute delirium due to infection also benzos and seroquel are making her lethargic . decrease seroquel to 50 TID PRN make Klonopin PRN 3- DM : ssi , hold metformin dispo : HLOC
[2016-12-27] MEDS: dilTIAZem HCL 30 MG TABLET (FP) PO SCH ×2 (04:21→07:00)
[2016-12-27] MEDS: INSULIN SLIDING SCALE (NOVOLOG) 1 VIAL SQ SCH ×4 (06:53→21:25)
[2016-12-27] MEDS: HEPARIN NA (PORCINE) 5,000 UNITS/ML 1ML VIAL SQ SCH ×3 (06:59→21:25)
[2016-12-27] MEDS: BISACODYL 5 MG TABLET.DR (FP) PO SCH ×3 (07:00→21:14)
[2016-12-27] MEDS ORDERED: PT OWN MED DRAWER 7, Y5N ONE (10:44)
[2016-12-27] MEDS: SENNOSIDES 8.6MG TABLET (FP) PO SCH (10:49)
[2016-12-27] MEDS: OSELTAMIVIR PHOSPHATE 30 MG CAPSULE PO SCH ×2 (10:49→21:15)
[2016-12-27] MEDS: ERTAPENEM SODIUM 1 GM in SODIUM CHLORIDE 50 ML IVPB SCH (10:49)
[2016-12-27] MEDS: clonazePAM 0.5 MG TABLET PO PRN (10:50)
[2016-12-27] MEDS: ACETAMINOPHEN 325 MG TABLET (FP) PO PRN (11:16)
[2016-12-27] MEDS ORDERED: INSULIN (NOVOLOG) ASPART 100 UNITS/ML 10ML VIAL ONE (12:06)
--- NOTE | 2016-12-27 12:34 | PN ---
Physical Exam: SUBJECTIVE: Patient seen and examined. She is lethargic and sleepy. She denies abdominal pain, chest pain. Her daughter was present at bedside. We discussed temporary rehab placement. OBJECTIVE: Vital Signs Period Temp Pulse Resp BP Sys/Mason Pulse Ox Last 24 Hr 97.4 F-98.8 F 68-79 16-20 103-153/52-77 98 GENERAL: The patient is awake, lethargic, in no acute distress. HEAD: Normal with no signs of trauma. EYES: PERRL, sclera anicteric, conjunctiva clear. No ptosis. ENT: moist mucous membranes. NECK: Trachea midline, supple. LUNGS: Breath sounds equal, rales and crackles bilaterally, no wheezes, no accessory muscle use. HEART: Regular rate and rhythm, S1, S2 without murmur, rub or gallop. ABDOMEN: Soft, nontender, nondistended, normoactive bowel sounds, no guarding, no rebound. EXTREMITIES: warm, well-perfused, no edema. NEUROLOGICAL: Normal speech, gait not observed. PSYCH:Lethargic SKIN: Warm, dry, normal turgor, no rashes, mid chest abscess present, draining yellow fluid. Laboratory Results - last 24 hr 12/26/16 12/27/16 22:11 06:53 POC Glucometer 146 116 Active Medications Generic Name Dose Route Start Last Admin Trade Name Freq PRN Reason Stop Dose Admin Acetaminophen 650 mg 12/24/16 11:23 12/27/16 11:16 Tylenol - PO 650 mg Q6H PRN Administration FEVER OR PAIN Albuterol/Ipratropium 1 amp 12/24/16 11:31 12/26/16 23:51 Duoneb - NEB 1 amp Q6H PRN Administration SHORTNESS OF BREATH Bisacodyl 5 mg 12/23/16 22:00 12/27/16 07:00 Dulcolax - PO 5 mg TID EAMON Administration Clonazepam 1 mg 12/26/16 19:35 12/27/16 10:50 Klonopin - PO 1 mg BID PRN Administration ANXIETY Heparin Sodium (Porcine) 5,000 unit 12/23/16 22:00 12/27/16 06:59 Heparin - SQ 5,000 unit TID EAMON Administration Ertapenem 1 gm/ Sodium 50 mls @ 50 mls/hr 12/26/16 11:15 12/27/16 10:49 Chloride IVPB 50 mls/hr DAILY EAMON Administration Insulin Aspart 1 vial 12/23/16 22:00 12/27/16 06:53 Novolog Vial Sliding Scale - SQ Not Given ACHS EAMON Protocol Oseltamivir Phosphate 30 mg 12/24/16 06:15 12/27/16 10:49 Tamiflu - PO 30 mg BID EAMON Administration Quetiapine Fumarate 50 mg 12/26/16 19:35 Seroquel - PO TID PRN AGITATION Senna 2 tab 12/24/16 10:00 12/27/16 10:49 Senna - PO 2 tab DAILY EAMON Administration CXR: no acute pathology. ASSESSMENT/PLAN: The patient is an 84 year old female with a significant PMH of dementia, HTN, type II diabetes, history of pyelonephritis who presents today complaining of fever, lethargy, mid chest abscess and cough. The pt is admitted to med surg for SIRS/SEPSIS due to possible PNA/abscess. Sepsis due to complicated UTI: -ucx shows ESBL -changed Zosyn to Ertapenem, today it is day 2 will continue for total of 7 days , -will stay in the hospital for one more day and then her daughter who is her caregiver agrees to rehab facility for temporary rehab -Tamiflu 30 mg, today day 4 -Tylenol for fever -Blood culture neg -LA normalized -NS stopped -positive for Influenza A -sputum culture Skin abscess/sebaceous cyst: -history of skin abscesses in the past, surgery state that it is sebaceous cyst that doesn't require drainage, it is draining yellow fluid, hasn't improved since admission. - consulted ID today, Dr Cheung confirmed that it is sebaceous cyst. AMS/Dementia -probably due to dementia/infection/being in the hospital -decreased Seroquel to 50 mg PRN and Clonazepam 1 mg PO PRN -her daughter states that her mental status changes are normal for her but at home she is able to ambulate with assistance. She also agrees to [facility] placement tomorrow. DM type 2: -hold Metformin -ISS ACHS -BGM ACHS HTN: -continue Cardizem 30 mg Q6H DVT PPX: -heparin 5000 u SQ GI PPX; -not indicated Disposition: Med surg Problem List - Problems (1) Pneumonia Code(s): J18.9 - PNEUMONIA, UNSPECIFIED ORGANISM (2) UTI (urinary tract infection) Code(s): N39.0 - URINARY TRACT INFECTION, SITE NOT SPECIFIED (3) Abscess Code(s): L02.91 - CUTANEOUS ABSCESS, UNSPECIFIED (4) Dementia Code(s): F03.90 - UNSPECIFIED DEMENTIA WITHOUT BEHAVIORAL DISTURBANCE Visit type - Emergency Visit Emergency Visit: Yes ED Registration Date: 12/23/16 Care time: The patient presented to the Emergency Department on the above date and was hospitalized for further evaluation of their emergent condition. - New Patient This patient is new to me today: No - Critical Care Critical Care patient: No - Discharge Referral Referred to [facility] Med P.C.: No
[2016-12-27] MEDS: ALBUTEROL SO4 2.5/IPRATROPIUM 0.5 INH SOL 3 ML VIAL.NEB. NEB PRN (12:37)
--- NOTE | 2016-12-27 13:20 | PN ---
Progress Note, Physician History of Present Illness: patient stable daughter in room sebacious material expressed from the sternal wound - Current Medication List Current Medications: Active Medications Acetaminophen (Tylenol -) 650 mg PO Q6H PRN PRN Reason: FEVER OR PAIN Last Admin: 12/27/16 11:16 Dose: 650 mg Albuterol/Ipratropium (Duoneb -) 1 amp NEB Q6H PRN PRN Reason: SHORTNESS OF BREATH Last Admin: 12/27/16 12:37 Dose: 1 amp Bisacodyl (Dulcolax -) 5 mg PO TID [facility] Last Admin: 12/27/16 07:00 Dose: 5 mg Clonazepam (Klonopin -) 1 mg PO BID PRN PRN Reason: ANXIETY Last Admin: 12/27/16 10:50 Dose: 1 mg Heparin Sodium (Porcine) (Heparin -) 5,000 unit SQ TID [facility] Last Admin: 12/27/16 06:59 Dose: 5,000 unit Ertapenem 1 gm/ Sodium (Chloride) 50 mls @ 50 mls/hr IVPB DAILY [facility] Last Admin: 12/27/16 10:49 Dose: 50 mls/hr Insulin Aspart (Novolog Vial Sliding Scale -) 1 vial SQ ACHS [facility] PRN Reason: Protocol Last Admin: 12/27/16 12:19 Dose: 2 units Oseltamivir Phosphate (Tamiflu -) 30 mg PO BID [facility] Last Admin: 12/27/16 10:49 Dose: 30 mg Quetiapine Fumarate (Seroquel -) 50 mg PO TID PRN PRN Reason: AGITATION Senna (Senna -) 2 tab PO DAILY [facility] Last Admin: 12/27/16 10:49 Dose: 2 tab - Objective Vital Signs: Vital Signs Temperature 97.4 F L 12/27/16 06:00 Pulse Rate 68 12/27/16 06:00 Respiratory Rate 20 12/27/16 06:00 Blood Pressure 103/52 12/27/16 06:00 O2 Sat by Pulse Oximetry (%) 98 12/26/16 21:00 Constitutional: Yes: No Distress, Calm Cardiovascular: Yes: Regular Rate and Rhythm Respiratory: Yes: Regular, Poor Air Entry Gastrointestinal: Yes: Normal Bowel Sounds, Soft Musculoskeletal: Yes: Other Neurological: Yes: Alert, Other Psychiatric: Yes: Alert Labs: CBC, BMP 12/24/16 06:00 01/23/17 06:00 Assessment/Plan 1. Sepsis secondary to acute bronchitis, early pneumonia, UTI, 2. HTN 3. Type 2 diabetes mellitus dehydration Influenza ESBL UTI sebacious cyst chest wall plan continue tamiflu finish 5 days continue ertapenam consider excision of the cyst if not there are high chances it will get infected
[2016-12-27] MEDS ORDERED: PICC LINE 8 ML FLUSH PROTOCOL IVPUSH PRN (16:25)
--- NOTE | 2016-12-27 16:50 | PN ---
Physical Exam: SUBJECTIVE: Patient seen and examined in f/u for ongoing evaluation and management of a sebaceous cyst of the anterior chest wall OBJECTIVE: Vital Signs Temperature 98.0 F 12/27/16 15:17 Pulse Rate 82 12/27/16 15:17 Respiratory Rate 16 12/27/16 15:17 Blood Pressure 120/78 12/27/16 15:17 O2 Sat by Pulse Oximetry (%) 98 12/27/16 09:00 GENERAL: The patient is awake, not alert, and not fully oriented, in no acute distress. SKIN: Warm, dry, normal turgor, sebaceous cyst of the anterior lower chest wall ; not fluctuant; minmal if any sero-purulent d/c and sebum; o/w negative. Laboratory Results - last 24 hr 12/26/16 12/27/16 12/27/16 22:11 06:53 12:04 POC Glucometer 146 116 163 Active Medications Generic Name Dose Route Start Last Admin Trade Name Freq PRN Reason Stop Dose Admin Acetaminophen 650 mg 12/24/16 11:23 12/27/16 11:16 Tylenol - PO 650 mg Q6H PRN Administration FEVER OR PAIN Albuterol/Ipratropium 1 amp 12/24/16 11:31 12/27/16 12:37 Duoneb - NEB 1 amp Q6H PRN Administration SHORTNESS OF BREATH Bisacodyl 5 mg 12/23/16 22:00 12/27/16 15:25 Dulcolax - PO 5 mg TID EAMON Administration Clonazepam 1 mg 12/26/16 19:35 12/27/16 10:50 Klonopin - PO 1 mg BID PRN Administration ANXIETY Heparin Sodium (Porcine) 5,000 unit 12/23/16 22:00 12/27/16 15:25 Heparin - SQ 5,000 unit TID EAMON Administration IV Flush 8 ml 12/27/16 16:25 Picc Line Flush IVPUSH PRN PRN Protocol Ertapenem 1 gm/ Sodium 50 mls @ 50 mls/hr 12/26/16 11:15 12/27/16 10:49 Chloride IVPB 50 mls/hr DAILY EAMON Administration Insulin Aspart 1 vial 12/23/16 22:00 12/27/16 12:19 Novolog Vial Sliding Scale - SQ 2 units ACHS EAMON Administration Protocol Oseltamivir Phosphate 30 mg 12/24/16 06:15 12/27/16 10:49 Tamiflu - PO 30 mg BID EAMON Administration Quetiapine Fumarate 50 mg 12/26/16 19:35 Seroquel - PO TID PRN AGITATION Senna 2 tab 12/24/16 10:00 12/27/16 10:49 Senna - PO 2 tab DAILY EAMON Administration ASSESSMENT/PLAN: sebaceous cyst of the anterior chest wall; this does not need I and D at this time and elective excision would come with a high rate of wound infection and breakdown; will d/w daughter and primary care team Rene Liu MD FACS Problem List - Problems (1) Sebaceous cyst Code(s): L72.3 - SEBACEOUS CYST Visit type - Case Type Case Type: ED Admission - Emergency Emergency Visit: Yes ED Registration Date: 12/23/16 Care time: The patient presented to the Emergency Department on the above date and was hospitalized for further evaluation of their emergent condition. - New patient This patient is new to me today: No - Critical Care Critical Care patient: No
--- NOTE | 2016-12-27 16:51 | PN ---
Teaching Attending Note Name of Resident: Donna Serra ATTENDING PHYSICIAN STATEMENT I saw and evaluated the patient. I reviewed the resident's note and discussed the case with the resident. I agree with the resident's findings and plan as documented. SUBJECTIVE: limited hx . denies pain . no events over night OBJECTIVE: NAD ,more awake today and responds to questions , no facial droop , round equal pupils CV: RRR lungs : b/l rales ext: no edema on chest wall , anterior to sternum, there is a palpable cyst with thick material coming out , no signs of infection ( erytehma or fluctuance ) ASSESSMENT AND PLAN: 86 y/o lady with h/o DM II, dementia, UTIS who presneted with lethargy and was found to have ESBL UTI 1- complicated UTI : cx with ESBL. - cont ertapenem day 01/08. - will place picc line tomorrow 2- AMS :Acute delirium due to infection and medications - change seroquel to BID PRN - cont PRN Klonopin 3- DM : SSI , hold metformin 4- Sebaceous cyst in chest wall : spoke to Dr. Liu,will try drainage today . dispo: d/w Daughter . agreeable to rehab. will place PICC tomorrow , hopefully we can find a bed tomorrow
--- NOTE | 2016-12-27 20:55 | HOSP ---
Physical Examination Vital Signs: Vital Signs Temperature 97.4 F L 12/27/16 17:15 Pulse Rate 74 12/27/16 17:15 Respiratory Rate 20 12/27/16 17:15 Blood Pressure 138/72 12/27/16 17:15 O2 Sat by Pulse Oximetry (%) 98 12/27/16 09:00 Labs: CBC, BMP 12/24/16 06:00 12/24/16 06:00 Hospitalist Encounter Assessment: Was paged by the nurse to inform that patient has a rash and has been itching under her breast. Went to examine the patient. She was sleeping, arousable but non communicative, didn't mention anything about rash or itching. Examined under her breast, has rash extending from middle of her breast and under the breast B/L, rash can be described as erythematous, macerated plaques with satellite papules and pustules, along with sebaceous cyst. A/P # Rash under the breast most likely due to alvarez intertrigo Nystatin ointment BID Nystatin powder Daily To maintain the area dry Illness and plan of care explained to the patient. Unware if patient understood. Family members not present at bed side. Case discussed with Dr. Coleman. Visit type - Emergency Visit Emergency Visit: Yes ED Registration Date: 12/23/16 Care time: The patient presented to the Emergency Department on the above date and was hospitalized for further evaluation of their emergent condition. - New Patient This patient is new to me today: Yes Date on this admission: 12/27/16 - Critical Care Critical Care patient: No
[2016-12-27] MEDS: NYSTATIN 100,000 UNIT/GM TOPICAL CREAM 15 GM TUBE TP SCH (21:16)
[2016-12-27] MEDS: NYSTATIN POWDER 100,000 UNITS/GM - 15 GM TOPICAL POWDER TP SCH (21:17)
[2016-12-27] MEDS ORDERED: CLOTRIMAZOLE 1% CREAM 15 GM TUBE TP SCH (22:00)
[2016-12-28] MEDS: HEPARIN NA (PORCINE) 5,000 UNITS/ML 1ML VIAL SQ SCH ×2 (05:33→15:31)
[2016-12-28] MEDS: BISACODYL 5 MG TABLET.DR (FP) PO SCH ×2 (05:35→14:49)
[2016-12-28] MEDS: INSULIN SLIDING SCALE (NOVOLOG) 1 VIAL SQ SCH ×3 (06:19→16:00)
--- NOTE | 2016-12-28 11:17 | PN ---
Physical Exam: SUBJECTIVE: Patient seen and examined. She is still sleepy. She denies chest pain, abdominal pain.Her daughter was present at bedside. Overnight she was scratching her chest and hospitalist ordered Nystatin ointment por possible fungal infection. OBJECTIVE: Vital Signs Period Temp Pulse Resp BP Sys/Mason Pulse Ox Last 24 Hr 97 F-98.0 F 74-91 16-20 120-150/72-83 97 GENERAL: The patient is awake, alert,lethargic, in no acute distress. HEAD: Normal with no signs of trauma. EYES: PERRL, sclera anicteric, conjunctiva clear. No ptosis. ENT: Ears normal, nares patent, moist mucous membranes. NECK: Trachea midline, supple. LUNGS: Breath sounds equal, rales and crackles B/L, no wheezes, no accessory muscle use. HEART: Regular rate and rhythm, S1, S2 without murmur, rub or gallop. ABDOMEN: Soft, nontender, nondistended, normoactive bowel sounds, no guarding, no rebound, no hepatosplenomegaly. EXTREMITIES: warm, well-perfused, no edema. NEUROLOGICAL: Normal speech, gait not observed. PSYCH: Normal mood, normal affect. SKIN: Warm, dry, normal turgor, sebaceous cyst present in mid chest, moist. Laboratory Results - last 24 hr 12/27/16 12/27/16 12/27/16 12:04 17:27 21:18 POC Glucometer 163 85 141 12/28/16 05:34 POC Glucometer 124 Active Medications Generic Name Dose Route Start Last Admin Trade Name Freq PRN Reason Stop Dose Admin Acetaminophen 650 mg 12/24/16 11:23 12/27/16 11:16 Tylenol - PO 650 mg Q6H PRN Administration FEVER OR PAIN Albuterol/Ipratropium 1 amp 12/24/16 11:31 12/27/16 12:37 Duoneb - NEB 1 amp Q6H PRN Administration SHORTNESS OF BREATH Bisacodyl 5 mg 12/23/16 22:00 12/28/16 05:35 Dulcolax - PO Not Given TID EAMON Clonazepam 1 mg 12/26/16 19:35 12/27/16 10:50 Klonopin - PO 1 mg BID PRN Administration ANXIETY Heparin Sodium (Porcine) 5,000 unit 12/23/16 22:00 12/28/16 05:33 Heparin - SQ 5,000 unit TID EAMON Administration IV Flush 8 ml 12/27/16 16:25 Picc Line Flush IVPUSH PRN PRN Protocol Ertapenem 1 gm/ Sodium 50 mls @ 50 mls/hr 12/26/16 11:15 12/27/16 10:49 Chloride IVPB 50 mls/hr DAILY EAMON Administration Insulin Aspart 1 vial 12/23/16 22:00 12/28/16 06:19 Novolog Vial Sliding Scale - SQ Not Given ACHS EAMON Protocol Nystatin 1 applic 12/27/16 22:00 12/27/16 21:16 Mycostatin Cream - TP 1 applic BID EAMON Administration Nystatin 1 applic 12/27/16 21:00 12/27/16 21:17 Nystop Powder - TP 1 applic DAILY EAMON Administration Oseltamivir Phosphate 30 mg 12/24/16 06:15 12/27/16 21:15 Tamiflu - PO 30 mg BID EAMON Administration Quetiapine Fumarate 50 mg 12/26/16 19:35 Seroquel - PO TID PRN AGITATION Senna 2 tab 12/24/16 10:00 12/27/16 10:49 Senna - PO 2 tab DAILY EAMON Administration ASSESSMENT/PLAN: The patient is an 84 year old female with a significant PMH of dementia, HTN, type II diabetes, history of pyelonephritis who presents today complaining of fever, lethargy, mid chest abscess and cough. The pt is admitted to med surg for complicated UTI. Sepsis due to complicated UTI: -ucx shows ESBL -changed Zosyn to Ertapenem, today it is day 3 will continue for total of 7 days -will stay in the hospital for one more day and then her daughter who is her caregiver agrees to rehab facility for temporary rehab -positive for Influenza, Tamiflu 30 mg, today day 5, last day -Tylenol for fever -Blood culture neg -LA normalized -NS stopped -sputum culture Skin abscess/sebaceous cyst: -history of skin abscesses in the past, surgery state that it is sebaceous cyst that doesn't require drainage, it is draining yellow fluid, hasn't improved since admission. - consulted ID and confirmed that it is sebaceous cyst. AMS/Dementia -probably due to dementia/infection/being in the hospital -decreased Seroquel to 50 mg PRN and Clonazepam 1 mg PO PRN -her daughter states that her mental status changes are normal for her but at home she is able to ambulate with assistance. She also agrees to [facility] placement tomorrow. DM type 2: -hold Metformin -ISS ACHS -BGM ACHS HTN: -continue Cardizem 30 mg Q6H DVT PPX: -heparin 5000 u SQ GI PPX; -not indicated Disposition: Med surg Problem List - Problems (1) Pneumonia Code(s): J18.9 - PNEUMONIA, UNSPECIFIED ORGANISM (2) UTI (urinary tract infection) Code(s): N39.0 - URINARY TRACT INFECTION, SITE NOT SPECIFIED (3) Abscess Code(s): L02.91 - CUTANEOUS ABSCESS, UNSPECIFIED (4) Dementia Code(s): F03.90 - UNSPECIFIED DEMENTIA WITHOUT BEHAVIORAL DISTURBANCE Visit type - Emergency Visit Emergency Visit: Yes ED Registration Date: 12/23/16 Care time: The patient presented to the Emergency Department on the above date and was hospitalized for further evaluation of their emergent condition. - New Patient This patient is new to me today: No - Critical Care Critical Care patient: No - Discharge Referral Referred to [facility] Med P.C.: No
[2016-12-28] MEDS: ERTAPENEM SODIUM 1 GM in SODIUM CHLORIDE 50 ML IVPB SCH (12:38)
[2016-12-28] MEDS: SENNOSIDES 8.6MG TABLET (FP) PO SCH (12:39)
[2016-12-28] MEDS: NYSTATIN 100,000 UNIT/GM TOPICAL CREAM 15 GM TUBE TP SCH (12:39)
[2016-12-28] MEDS: NYSTATIN POWDER 100,000 UNITS/GM - 15 GM TOPICAL POWDER TP SCH (12:39)
[2016-12-28] MEDS: OSELTAMIVIR PHOSPHATE 30 MG CAPSULE PO SCH (12:40)
--- NOTE | 2016-12-28 13:22 | PN ---
Teaching Attending Note Name of Resident: Donna Serra ATTENDING PHYSICIAN STATEMENT I saw and evaluated the patient. I reviewed the resident's note and discussed the case with the resident. I agree with the resident's findings and plan as documented. SUBJECTIVE: poor historian , no events over night OBJECTIVE: NAD ,awake , no facial droop , round equal pupils CV: RRR lungs : b/l rales improved ext: no edema cyst on anterior chest wall is smaller today . no drainage ASSESSMENT AND PLAN: 86 y/o lady with h/o DM II, dementia, UTIS who presneted with lethargy and was found to have ESBL UTI 1- complicated ESBL UTI . - cont ertapenem day 3. - PICC line in 2- AMS :Acute delirium due to infection and medications . resolved c. cont decreased dose seroquel and klonopin 3- DM : resume metformin as per pre admission Meds. up to PCP to change to another agent as she is elderly 4- Sebaceous cyst in chest wall :monitor dispo " dc to rehab today
--- NOTE | 2016-12-28 13:31 | DS ---
Physical Exam: SUBJECTIVE: Patient seen and examined. She is sleepy. She denies chest pain, abdominal pain. Her daughter is present at bedside. OBJECTIVE: Vital Signs Period Temp Pulse Resp BP Sys/Mason Pulse Ox Last 24 Hr 97 F-98.0 F 74-91 16-20 120-150/72-83 97 PHYSICAL EXAM GENERAL: The patient is awake, alert, lethargic, in no acute distress. HEAD: Normal with no signs of trauma. EYES: PERRL, sclera anicteric, conjunctiva clear. ENT: oropharynx clear without exudates, moist mucous membranes. NECK: Trachea midline, full range of motion, supple. LUNGS: Breath sounds equal, rales and crackles bilaterally, no wheezes, no accessory muscle use. HEART: Regular rate and rhythm, S1, S2 without murmur, rub or gallop. ABDOMEN: Soft, nontender, nondistended, normoactive bowel sounds, no guarding, no rebound, no hepatosplenomegaly, no masses. EXTREMITIES: warm, well-perfused, no edema. NEUROLOGICAL: Normal speech, gait not observed. PSYCH: Normal mood, normal affect. SKIN: Warm, dry, normal turgor, rash under left breast, draining cyst in mid chest. LABS Laboratory Results - last 24 hr 12/27/16 12/27/16 12/28/16 17:27 21:18 05:34 POC Glucometer 85 141 124 HOSPITAL COURSE: Date of Admission:12/23/16 Date of Discharge: 12/28/16 Minutes to complete discharge: 59 Discharge Summary Reason For Visit: UTI PNEUMONIA Current Active Problems Dementia Pneumonia (Acute) Sebaceous cyst (Acute) UTI (urinary tract infection) (Acute) Hospital Course: The patient is an 84 year old female with a significant PMH of dementia, HTN, type II diabetes, history of pyelonephritis who presents to the hospital complaining of fever, and cough. The patients daughter states that the cough and fever started last night around 10pm. She is coughing up yellowish sputum. The patient had 1 episode of vomiting this morning, non bloody, non bilious. She states that her mother didn't want to ambulate today and had no appetite. She also states that the patient has an abscess that she noticed week ago. It ruptured dark, brownish, foul-smelling pus in the middle of her chest. The pt has had multiple sebaceous abscesses in the past.The patient's daughter also states that the patient urine has a foul odor. The pt lives alone but has visiting nurse everyday and her daughters also visit her. The history was taken from the pt's daughters. Hospital course: In ED she had urinalysis, urine culture, chest x ray and basic lab work done. The pt was admitted for sepsis due to UTI. She was found to have urine culture positive for ESBL. We treated her with Ertapenem IV. She was also positive for Influenza. We treated her with Tamiflu for 5 days. We also consulted Surgery for her abcess in the chest that was diagnosed as sebaceous cyst and no I&O was recommended at this time. Over the hospital course the pt had mental status changes. She was lethargis at times and also agitated. We decreased the ambulatory order for Seroquel from 100 mg to 50 mg PRN and Klonipin to 1 mg to PRN. We continued Nifedipine, the pt was evaluated by speech pathologist which was negative for problems with swallowing. She was in ISS in the hospital and we recommend to follow up with her PCP to adjust her oral medications for DM.The pt was evaluated by PT. We recommended temporary rehabilitation center which was discussed with her daughter. Condition: Improved - Instructions Diet, Activity, Other Instructions: Take your medications as prescribed. Ertapenem intravenously for 4 more days. Please see your primary care physician Marleny Roy [facility] in a week. if you feel shortness of breath, chest pain, palpitations, dizziness, fever, chills, loss of consciousness, bleeding or infection in the site of your sebaceous cyst come to emergency room as soon as possible. PIcc line needs to be removed after Abx are finished Disposition: [facility] - Home Medications Comprehensive Discharge Medication List: Ambulatory Orders Metformin HCl [Glucophage -] 500 mg PO DAILY #14 tablet 04/06/14 Sennosides [Senna -] 2 tab PO DAILY #14 tablet 04/06/14 Bisacodyl [Dulcolax] 5 mg PO TID 12/23/16 Nifedipine 30 mg PO DAILY 12/23/16 Albuterol 2.5/Ipratropium 0.5 [Duoneb -] 1 amp NEB Q6H PRN #0 amp 12/28/16 Clonazepam [Klonopin -] 1 mg PO BID PRN #0 tablet MDD 4 12/28/16 Ertapenem Sodium [Invanz -] 1 gm IVPB DAILY #4 vial 12/28/16 Nystatin Powder [Nystop Powder -] 1 applic TP DAILY applic 12/28/16 Picc Line Flush [Picc Line Flush -] 8 ml IVPUSH PRN PRN #0 ml 12/28/16 Quetiapine Fumarate [Seroquel -] 50 mg PO TID PRN #0 tablet 12/28/16 Problem List - Problems (1) Pneumonia Code(s): J18.9 - PNEUMONIA, UNSPECIFIED ORGANISM (2) UTI (urinary tract infection) Code(s): N39.0 - URINARY TRACT INFECTION, SITE NOT SPECIFIED (3) Sebaceous cyst Code(s): L72.3 - SEBACEOUS CYST (4) Dementia Code(s): F03.90 - UNSPECIFIED DEMENTIA WITHOUT BEHAVIORAL DISTURBANCE This patient is new to me today: No Emergency Visit: Yes ED Registration Date: 12/23/16 Care time: The patient presented to the Emergency Department on the above date and was hospitalized for further evaluation of their emergent condition. Critical Care patient: No - Discharge Referral Referred to [facility] No
--- NOTE | 2016-12-28 13:45 | PN ---
Progress Note, Physician History of Present Illness: patient stable no new events - Current Medication List Current Medications: Active Medications Acetaminophen (Tylenol -) 650 mg PO Q6H PRN PRN Reason: FEVER OR PAIN Last Admin: 12/27/16 11:16 Dose: 650 mg Albuterol/Ipratropium (Duoneb -) 1 amp NEB Q6H PRN PRN Reason: SHORTNESS OF BREATH Last Admin: 12/27/16 12:37 Dose: 1 amp Bisacodyl (Dulcolax -) 5 mg PO TID [facility] Last Admin: 12/28/16 05:35 Dose: Not Given Clonazepam (Klonopin -) 1 mg PO BID PRN PRN Reason: ANXIETY Last Admin: 12/27/16 10:50 Dose: 1 mg Heparin Sodium (Porcine) (Heparin -) 5,000 unit SQ TID [facility] Last Admin: 12/28/16 05:33 Dose: 5,000 unit IV Flush (Picc Line Flush) 8 ml IVPUSH PRN PRN PRN Reason: Protocol Ertapenem 1 gm/ Sodium (Chloride) 50 mls @ 50 mls/hr IVPB DAILY [facility] Last Admin: 12/28/16 12:38 Dose: 50 mls/hr Insulin Aspart (Novolog Vial Sliding Scale -) 1 vial SQ ACHS EAMON PRN Reason: Protocol Last Admin: 12/28/16 06:19 Dose: Not Given Nystatin (Mycostatin Cream -) 1 applic TP BID [facility] Last Admin: 12/28/16 12:39 Dose: 1 applic Nystatin (Nystop Powder -) 1 applic TP DAILY [facility] Last Admin: 12/28/16 12:39 Dose: 1 applic Oseltamivir Phosphate (Tamiflu -) 30 mg PO BID [facility] Last Admin: 12/28/16 12:40 Dose: 30 mg Quetiapine Fumarate (Seroquel -) 50 mg PO TID PRN PRN Reason: AGITATION Senna (Senna -) 2 tab PO DAILY [facility] Last Admin: 12/28/16 12:39 Dose: Not Given - Objective Vital Signs: Vital Signs Temperature 97 F L 12/28/16 09:06 Pulse Rate 89 12/28/16 09:06 Respiratory Rate 20 12/28/16 09:06 Blood Pressure 134/73 12/28/16 09:06 O2 Sat by Pulse Oximetry (%) 97 12/27/16 21:00 Constitutional: Yes: No Distress, Calm Neck: Yes: Supple Cardiovascular: Yes: Regular Rate and Rhythm Respiratory: Yes: Regular Gastrointestinal: Yes: Normal Bowel Sounds, Soft Musculoskeletal: Yes: Other (sebacious cyst drainaing on the chest) Extremities: Yes: Other Neurological: Yes: Alert, Other Labs: CBC, BMP 12/24/16 06:00 12/24/16 06:00 Assessment/Plan 1. Sepsis secondary to acute bronchitis, early pneumonia, UTI, 2. HTN 3. Type 2 diabetes mellitus dehydration Influenza ESBL UTI sebacious cyst chest wall plan continue current mgmt incentive cecilia
[2016-12-28] MEDS: ACETAMINOPHEN 325 MG TABLET (FP) PO PRN (15:54)
[2016-12-28 16:58] VITALS: BP 135/80; PULSE 83; TEMP 98.9
[2016-12-28] MEDS: clonazePAM 0.5 MG TABLET PO PRN (19:00)
== END 2016-12-28 19:00 | DRG 871 ==
LOC: JER 13:05 → JERBED 15:53 → J8W 18:14
PROVIDERS: ADMIT Internal Medicine; ATTEND Internal Medicine
PROC: 02HV33Z Insertion of Infusion Device into Superior Vena Cava, Percutaneous Approach (ICD-10-PCS; principal; 2016-12-28)
PROC: B548ZZA Ultrasonography of Superior Vena Cava, Guidance (ICD-10-PCS; 2016-12-28)
DX: A41.9 Sepsis, unspecified organism (principal); J11.00 Influenza due to unidentified influenza virus with unspecified type of pneumonia; N39.0 Urinary tract infection, site not specified; F03.90 Unspecified dementia, unspecified severity, without behavioral disturbance, psychotic disturbance, mood disturbance, and anxiety; E11.9 Type 2 diabetes mellitus without complications; I10 Essential (primary) hypertension; Z79.84 Long term (current) use of oral hypoglycemic drugs; L72.3 Sebaceous cyst; E86.0 Dehydration; J20.9 Acute bronchitis, unspecified; R41.0 Disorientation, unspecified; L30.4 Erythema intertrigo
CPT/HCPCS: 36415; 36569; 71010-TC; 77001-TC; 80048; 80053; 81003; 81015; 83605; 83880; 85025; 85027; 87040; 87086; 87186; 87804; 93005; 93010; 94640; 97116-GP; 97161-GP; 99284-25; C1751; J1644